=== PATIENT | female | born 1980 | race Caucasian/White ===

== ENCOUNTER 2017-02-04 10:32 | Emergency (ER) | payer MEDICAID ==
[~2017-02-04] VITALS: Ht 162.6 cm; Wt 140.0 kg
[~2017-02-04 10:32] MED LIST: AZIT500V2 PO; TRAM50TA2 PO
[2017-02-04 10:39] VITALS: BP 128/98
[2017-02-04] MEDS ORDERED: KETOROLAC 30 MG/1 ML ONE (10:57)
[2017-02-04] MEDS ORDERED: HYDROmorphone 1 MG/ML, 1ML ONE (10:57)
[2017-02-04] MEDS ORDERED: METHOCARBAMOL 750 MG TABLET ONE (10:57)
[2017-02-04] MEDS ORDERED: KETOROLAC 30 MG/1 ML IM ONE (11:00)
[2017-02-04] MEDS ORDERED: METHOCARBAMOL 750 MG TABLET PO ONE (11:00)
[2017-02-04] MEDS ORDERED: HYDROmorphone 1 MG/ML, 1ML IM ONE (11:00)
== END 2017-02-04 13:33 | disposition home or self-care (01) ==
LOC: ED 11:29
DX: S39.012A Strain of muscle, fascia and tendon of lower back, initial encounter (principal); G89.29 Other chronic pain; M54.9 Dorsalgia, unspecified; X58.XXXA Exposure to other specified factors, initial encounter; Y93.89 Activity, other specified; Y99.8 Other external cause status; Y92.89 Other specified places as the place of occurrence of the external cause
CPT/HCPCS: 72110; 96372; 99284; J1170; J1885